=== PATIENT | female | born 2000 | race Caucasian/White ===

== ENCOUNTER 2018-10-02 21:07 | Emergency (ER) | payer BC, OTHER ==
[~2018-10-02] VITALS: Ht 152.4 cm; Wt 65.8 kg
[2018-10-03 01:00] VITALS: BP 146/89
[2018-10-03] MEDS ORDERED: PROMETHAZINE W/CODEINE 5 ML ORAL SYRUP PO ONE (01:30)
[2018-10-03] MEDS ORDERED: HYDROcodone-ACET 5/325MG TAB PO ONE (01:30)
== END 2018-10-03 02:00 | disposition home or self-care (01) ==
LOC: ER 21:11
DX: G43.909 Migraine, unspecified, not intractable, without status migrainosus (principal)
CPT/HCPCS: 70450